=== PATIENT | female | born 1970 | race Caucasian/White ===

== ENCOUNTER 2020-02-12 15:45 | Observation (INO) | payer BC, OTHER ==
[~2020-02-12] VITALS: Ht 160 cm; Wt 118.2 kg
[~2020-02-12 15:45] MED LIST: CALC500T54 PO; CRESTOR10 MG PO; NILO200C PO
[2020-02-12 16:54] LABS: BASO # 0.1 x10^3/uL (0.0-0.2); BASO % 1 % (0-3); EOS # 0.2 x10^3/uL (0.0-0.7); EOS % 3 % (0-3); HEMATOCRIT 40.2 % (36.0-47.0); HEMOGLOBIN 13.5 g/dL (12.0-15.5); LYMPH # 3.1 x10^3/uL (1.0-4.8); LYMPH % 51 % (24-48); MEAN CORPUSCULAR HEMOGLOBIN 33 pg (25-35); MEAN CORPUSCULAR HGB CONC 34 g/dL (31-37); MEAN CORPUSCULAR VOLUME 98 fL (79-100); MONO # 0.4 x10^3/uL (0.0-1.1); MONO % 7 % (0-9); NEUT # 2.3 x10^3uL (1.8-7.7); NEUT % 38 % (31-73); PLATELET COUNT 313 x10^3/uL (140-400); RED BLOOD COUNT 4.08 x10^6/uL (3.50-5.40); RED CELL DISTRIBUTION WIDTH 13.4 % (11.5-14.5)
--- NOTE | 2020-02-12 17:05 | RAD ---
Chest AP portable at 1541: Reason for examination: Chest pain. The heart size is normal. Mediastinum is unremarkable. Lung farias are clear. No acute bony abnormali ties are seen. Impression: No acute cardiopulmonary disease. Electronically signed by: Kimberly Lynn MD (02/12/2020 5:03 PM) ELISEO
[2020-02-12 17:09] LABS: CALCIUM 9.1 mg/dL (8.5-10.1); GFR 58.9; POTASSIUM 3.7 mmol/L (3.5-5.1)
--- NOTE | 2020-02-12 17:11 | PHYS DOC ---
Past History Past Medical History: Anxiety, High Cholesterol, Hypertension, Other Additional Past Medical Histor: CML; LBBB Past Surgical History: Other Additional Past Surgical Histo: EYE X2; BILAT CARPAL TUNNEL; R TENNIS ELBOW Alcohol Use: None General Adult EDM: Chief Complaint: CHEST PAIN HPI: HPI: 50-year-old female past medical history of CML (on "TKI"), hypertension, hyperlipidemia and anxiety, presents to the ED with complaints of left-sided chest pain described as round and heavy that has been constant since yesterday afternoon at work. Reports the pain radiates to her left arm and "feels like I overexerted myself from exercise, but I haven't exercised." No relief with Tylenol that she took this morning. She thought her symptoms were related to anxiety and took a Xanax last night with no relief. Patient is also concerned her blood pressure is elevated, systolic was 190 on Saturday. States she had similar symptoms in 2017 or 2018 when she was seen at [facility]. Was diagnosed with a left bundle branch block at that time and had an unremarkable stress test. Is never had a cardiac cath. No history of blood clots or syncope. Family history-dad with a fast heart rate. No family history of sudden under the age of 50, aortic disease, connective tissue disorders, coronary artery disease or STEMI or coagulopathy. Patient is not on any anticoagulants. Denies any history of cocaine or methamphetamine abuse no excessive caffeine or IV drug use. Is not a tobacco smoker. Review of Systems: Review of Systems: Constitutional: Denies fever or chills or diaphoresis Eyes: Denies change in visual acuity HENT: Denies nasal congestion or sore throat Respiratory: Denies cough or shortness of breath Cardiovascular: Denies hemoptysis or edema GI: Denies abdominal pain, nausea, vomiting, bloody stools or diarrhea : Denies dysuria Musculoskeletal: Denies back pain or joint pain Integument: Denies rash Neurologic: Denies headache, focal weakness or sensory changes Endocrine: Denies polyuria or polydipsia Lymphatic: Denies swollen glands Psychiatric: Denies depression or anxiety Allergies: Allergies: Allergies Coded Allergies Type Severity Reaction Last Updated Verified No Known Drug Allergies 02/12/20 No Physical Exam: PE: Constitutional: Well developed, well nourished, no acute distress, non-toxic appearance, obese HENT: Normocephalic, atraumatic, Eyes: EOMI, conjunctiva normal, no discharge. Neck: Normal range of motion, supple, Cardiovascular: S1/2 present, regular rhythm Lungs & Thorax: Speaking in full sentences, bilateral equal chest rise, no tachypnea or increased work of breathing Abdomen: soft, no tenderness, Skin: Warm, dry, no erythema, no rash. Back: No tenderness, no CVA tenderness. [] Extremities: No tenderness, no cyanosis, mild LE edema Neurologic: Alert and oriented X 3, normal motor function, normal sensory function, no focal deficits noted. [] Psychologic: Affect normal, judgement normal, mood normal. [] Current Patient Data: Labs: Laboratory Tests Test 02/12/20 16:25 White Blood Count 6.0 x10^3/uL (4.0-11.0) Red Blood Count 4.08 x10^6/uL (3.50-5.40) Hemoglobin 13.5 g/dL (12.0-15.5) Hematocrit 40.2 % (36.0-47.0) Mean Corpuscular Volume 98 fL (79-100) Mean Corpuscular Hemoglobin 33 pg (25-35) Mean Corpuscular Hemoglobin Concent 34 g/dL (31-37) Red Cell Distribution Width 13.4 % (11.5-14.5) Platelet Count 313 x10^3/uL (140-400) Neutrophils (%) (Auto) 38 % (31-73) Lymphocytes (%) (Auto) 51 % (24-48) H Monocytes (%) (Auto) 7 % (0-9) Eosinophils (%) (Auto) 3 % (0-3) Basophils (%) (Auto) 1 % (0-3) Neutrophils # (Auto) 2.3 x10^3uL (1.8-7.7) Lymphocytes # (Auto) 3.1 x10^3/uL (1.0-4.8) Monocytes # (Auto) 0.4 x10^3/uL (0.0-1.1) Eosinophils # (Auto) 0.2 x10^3/uL (0.0-0.7) Basophils # (Auto) 0.1 x10^3/uL (0.0-0.2) Vital Signs: Vital Signs Date Time Temp Pulse Resp B/P (MAP) Pulse Ox O2 Delivery O2 Flow Rate FiO2 02/12/20 15:52 80 21 149/46 (80) 97 Room Air EKG: EKG: Sinus rhythm at 82 bpm, no axis deviation, QRS 148, QTc 489, T wave inversion aVL, old LBBB (per hx), no ST elevations or ST depressions via modified scarbossa criteria Radiology/Procedures: Radiology/Procedures: IMAGING REPORT Signed PATIENT: VITOR VICENTE ACCOUNT: [id number] : 1970 LOCATION: ER AGE: 50 SEX: F EXAM STATUS: REG ER ORD. PHYSICIAN: JEY DOMINIQUE DO REASON: cp PROCEDURE: PORTABLE CHEST 1V Chest AP portable at 1541: Reason for examination: Chest pain. The heart size is normal. Mediastinum is unremarkable. Lung farias are clear. No acute bony abnormalities are seen. Impression: No acute cardiopulmonary disease. Electronically signed by: Kimberly Howard MD (02/12/2020 5:03 PM) [facility] DICTATED AND SIGNED BY: KIMBERLY HOWARD MD DATE: 02/12/20 1702 CC: CHERYL ANNA MD; JEY DOMINIQUE DO ~MTH0 0 Heart Score: HEART Score for Chest Pain: HEART Score for Chest Pain Response (Comments) Value History Slighlty/Non-Suspicious 0 ECG Nonspecific Repolarizatio 1 Age >45 - < 65 1 Risk Factors >3 Risk Factors or Hx CAD 2 Troponin < Normal Limit 0 Total 4 Risk Factors: Risk Factors: DM, Current or recent (<one month) smoker, HTN, HLP, family history of CAD, obesity. Risk Scores: Score 0 - 3: 2.5% MACE over next 6 weeks - Discharge Home Score 4 - 6: 20.3% MACE over next 6 weeks - Admit for Clinical Observation Score 7 - 10: 72.7% MACE over next 6 weeks - Early Invasive Strategies Course & Med Decision Making: Course & Med Decision Making Pertinent Labs and Imaging studies reviewed. (See chart for details) Concern for chest pain in the setting of heart score of 4, EKG with left bundle and 1 T wave inversion. Troponin within normal limits. D-dimer within normal limits. Chest x-ray with no ischemia. Drug screen negative. Will admit for serial cardiac enzymes and cardiology consultation. TKI-tyrosine kinase inhibitor (drug class) has rare but serious cardiac side effects including congestive heart failure and QT interval prolongation. Patient stable at time of admission and agrees with this plan. I have spoken with the patient and/or caregivers. I have explained the patient's condition, diagnosis and treatment plan based on the information available to me at this time. I have answered the patient's and/or caregivers questions and answered any concerns. The patient and/or caregivers have as good an understanding of the patient's diagnosis, condition and treatment plan as can be expected at this point. The patient has been stabilized within the capability of the emergency department. The patient will be transported for further care and management or will be moved to an observation or inpatient service. I have communicated with the staff or medical practitioner taking over this patient's care. Alejandra Disclaimer: Alejandra Disclaimer: This electronic medical record was generated, in whole or in part, using a voice recognition dictation system. Departure Departure: Impression: Primary Impression: Chest pain at rest Disposition: ADMITTED INPT THIS HOSP Admitting Physician: Buck Delarosa Condition: STABLE Referrals: CHERYL ANNA MD (PCP) JEY DOMINIQUE DO Feb 12, 2020 17:11
[2020-02-12] MEDS ORDERED: diazePAM 5 MG TABLET. PO ONE (17:15)
[2020-02-12 17:21] LABS: ALBUMIN 4.1 g/dL (3.4-5.0); ALBUMIN/GLOBULIN RATIO 1.1 (1.0-1.7); MAGNESIUM 2.2 mg/dL (1.8-2.4); TOTAL BILIRUBIN 0.6 mg/dL (0.2-1.0); TOTAL PROTEIN 7.8 g/dL (6.4-8.2)
--- NOTE | 2020-02-12 17:34 | EKG ---
[address] [address] Test Date: 2020-02-12 Test Time: 15:57:41 Pat Name: VITOR VICENTE Department: Room: Gender: F [employer]: FABRICIO : 1970 Requested By: JEY DOMINIQUE Order Number: [id number] Reading MD: Measurements Intervals [place] Rate: 82 P: 51 NH: 168 QRS: 15 QRSD: 148 T: 73 QT: 416 QTc: 489 Interpretive Statements SINUS RHYTHM LEFT BUNDLE BRANCH BLOCK ABNORMAL ECG RI6.02 No previous ECG available for comparison
[2020-02-12] MEDS ORDERED: NITROGLYCERIN SUBLINGUAL 0.4 MG BOTTLE OF 25. SL PRN (18:45)
[2020-02-12] MEDS ORDERED: ONDANSETRON PF 4 MG/2 ML VIAL. IVP PRN (18:45)
[2020-02-12 19:14] LABS: BARBITURATES NEG (NEG); BENZODIAZEPINES NEG (NEG); CANNABINOIDS NEG (NEG); COCAINE NEG (NEG); METHADONE NEG (NEG); OPIATES NEG (NEG); PHENCYCLIDINE NEG (NEG)
[2020-02-12 19:18] LABS: AMPHETAMINE/METHAMPHETAMINE NEG (NEG)
[2020-02-12 20:20] VITALS: BP 148/82
--- NOTE | 2020-02-12 22:10 | NUR ---
The patient, VITOR VICENTE, 50 y/o, F admitted by ROSIE MABRY MD, was given written information regarding hospital policies, unit procedures and contact persons. Valuables were checked and logged. Call light at place. Will continue to monitor.
[2020-02-12 23:00] VITALS: BP 119/58
[2020-02-12] MEDS ORDERED: EZET10TA20 PO (23:01)
[2020-02-12] MEDS ORDERED: PRAV40TA2 PO (23:06)
[2020-02-12] MEDS ORDERED: CARV12.547 PO (23:06)
[2020-02-12] MEDS ORDERED: DASA20TA PO (23:06)
[2020-02-12] MEDS ORDERED: LISI10TA2 PO (23:13)
[2020-02-12] MEDS ORDERED: DULO60CA6 PO (23:13)
[2020-02-12] MEDS ORDERED: DASATINIB 20 MG PO ONE (23:15)
[2020-02-12] MEDS ORDERED: ATORVASTATIN CALCIUM 10 MG TABLET. PO SCH (23:15)
[2020-02-12] MEDS: LISINOPRIL 10 MG TABLET PO SCH (23:33)
[2020-02-12] MEDS: CARVEDILOL 12.5 MG TABLET PO SCH (23:34)
[2020-02-12] MEDS: EZETIMIBE 10 MG TABLET PO SCH (23:34)
[2020-02-13 03:11] VITALS: BP 104/58
[2020-02-13 05:46] VITALS: BP 95/54
[2020-02-13 08:10] VITALS: BP 111/66
[2020-02-13] MEDS: EZETIMIBE 10 MG TABLET PO SCH (08:30)
[2020-02-13] MEDS: CARVEDILOL 12.5 MG TABLET PO SCH (08:31)
[2020-02-13 08:32] VITALS: BP 95/54
[2020-02-13] MEDS: LISINOPRIL 10 MG TABLET PO SCH (08:32)
--- NOTE | 2020-02-13 08:53 | HP ---
ADMIT DATE: 02/12/2020 ATTENDING PHYSICIAN: Dr. Mabry. CHIEF COMPLAINT: Chest pain. HISTORY OF PRESENT ILLNESS: The patient is a 50-year-old female with new onset of chest pain, left sided, described as heavy and pressure, constant since the day before at work. No recent trauma or heavy activity. The pain radiates to the left arm, it felt like she overexerted myself from exercise, but she has an exercise. She took some ibuprofen, which did not help. She is worried about her blood pressure was elevated. 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 EKG had a left bundle-branch block. She was admitted for monitoring and serial cardiac enzymes. Risk factors, there is no family history. She is a nonsmoker, nondrinker. She is obese. She has other medical issues. PAST MEDICAL HISTORY: Significant for chronic myelogenous leukemia diagnosed in 2008. She has been on Gleevec and other tyrosine kinase inhibitors, which is cured her disease. She also has hyperlipidemia, morbid obesity, essential hypertension and a carpal tunnel release. CURRENT MEDICATIONS: Reviewed. She was taking calcium carbonate, Coreg 12.5 mg b.i.d., Sprycel 20 mg daily, Cymbalta 60 mg daily, Zetia, lisinopril, nilotinib 200 mg daily, pravastatin, Crestor. It is unclear whether she is taking both of the statin drugs. ALLERGIES: She has no known drug allergies. FAMILY HISTORY: There is no related early premature heart disease. SOCIAL HISTORY: She is a nonsmoker, nondrinker. 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 She is under a lot of stress at work. She also has stress with 2 grown children moving in with her since the pandemic. REVIEW OF SYSTEMS: Significant for localized pain. No recent travel, COVID exposure, falls, trauma, fevers, cough or chills. All other systems were reviewed and turned to be negative. PHYSICAL EXAMINATION: GENERAL: When I saw her, this is a pleasant, middle-aged female. INITIAL VITAL SIGNS: Showed a blood pressure of 104/58 by the time I saw her, pulse was 74 and regular. She was afebrile, oxygen saturation 96% on room air. HEENT: Head is without trauma. Pupils are reactive. Sclerae nonicteric. Oropharynx is clear. NECK: Supple, no bruits identified. LUNGS: Otherwise clear. CARDIOVASCULAR: Showed regular heart tones. No gallops. ABDOMEN: Soft, obese, protuberant. No organomegaly. Bowel sounds are hypoactive. EXTREMITIES: Showed no cyanosis or edema. NEUROLOGIC: Focally intact. Speech is fluent. Commercial Fishing Vessel Operator intact. SKIN: Warm and dry. PERTINENT LABORATORY STUDIES: Hemoglobin is 13.5 g/dL, white cell count 6000. Electrolytes, BUN and creatinine within normal range. The first set of cardiac enzymes were negative with a normal troponin without any evidence of coronary ischemia. EKG showed left bundle-branch block. Chest x-ray was clear without any acute decompensation or infiltrate. ASSESSMENT: 1. A 50-year-old female with atypical chest pain more musculoskeletal in nature. 2. Known history of chronic myelogenous leukemia, currently in remission, she has had this since 2008. 3. Obesity. 4. Hypertension. 5. Hyperlipidemia. PLAN: 1. Observation status. 2. Telemetry monitoring. 3. Serial cardiac enzymes. 4. Continue home meds. ROSIE MABRY MD DR: SHINE/ki JOB#: [id number] / [id number] CHERYL Joyner MD
[2020-02-13] MEDS ORDERED: DULoxetine HCL 60 MG CAPSULE.DR PO SCH (09:00)
--- NOTE | 2020-02-13 09:01 | DS ---
DATE OF DISCHARGE: 02/13/2020 ATTENDING PHYSICIAN: Dr. Mabry. FINAL DISCHARGE DIAGNOSES: 1. Atypical chest pain, noncardiac. 2. Coronary ischemia ruled out. 3. History of chronic myelogenous leukemia, in remission. 4. Hypertension. 5. Hyperlipidemia. 6. Obesity. 7. Underlying generalized anxiety disorder. HISTORY OF PRESENT ILLNESS: The patient is a pleasant 50-year-old female. 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 She was admitted with nonexertional chest pain, left sided, more musculoskeletal in nature. She was admitted for evaluation and serial cardiac enzymes. PHYSICAL EXAMINATION: Please see the dictated note. PERTINENT LABORATORY AND X-RAY STUDIES: Three sets of cardiac enzymes negative for coronary ischemia. Electrolytes within normal range. CBC and white count were normal. COURSE IN THE HOSPITAL: The patient was admitted and monitored overnight. Three sets of enzymes were negative for coronary ischemia. Pain had subsided, ____ completely resolved, more localized musculoskeletal in nature. We had a long discussion, she is under a lot of stress. She denied any recent trauma. I reassured her that her pains were noncardiac. Therefore, she was ready for discharge. There are no changes on her home medications. She will continue her current regimen of Coreg 12.5 mg b.i.d., calcium, Sprycel for leukemia, Cymbalta, Zetia, lisinopril, Tasigna, pravastatin dose is unchanged. She will follow up with her regular PCP. She was discharged then from our hospital in stable condition with explicit instructions and followup care. ROSIE MABRY MD DR: SIHNE/ki JOB#: [id number] / [id number] CHERYL Joyner MD
--- NOTE | 2020-02-13 09:30 | NUR ---
REVIEWED D/C PAPERWORK WITH PT. PT SIGNED HER PAPERWORK AND IV WAS D/C BY [employer] [facility]. PT HAD NO SCRIPTS AND ALL PT BELONGINGS WERE SENT WITH PATIENT. PT WAS DISCONNECTED FROM MONITOR AND WALKED TO THE FRONT DOOR TO WAIT FOR HER RIDE. PT D/C FROM THE HOSPITAL.
[2020-02-13] MEDS ORDERED: DASATINIB 20 MG PO SCH (21:00)
== END 2020-02-13 09:30 | disposition home or self-care (01) ==
LOC: ER 15:45 → ICU 18:40 → INTOOBSV 18:40
PROVIDERS: ADMIT Hospitalist; ATTEND Hospitalist
DX: R07.89 Other chest pain (principal); C92.11 Chronic myeloid leukemia, BCR/ABL-positive, in remission; I10 Essential (primary) hypertension; I44.7 Left bundle-branch block, unspecified; E78.5 Hyperlipidemia, unspecified; E66.01 Morbid (severe) obesity due to excess calories; E78.00 Pure hypercholesterolemia, unspecified; F41.9 Anxiety disorder, unspecified; Z98.890 Other specified postprocedural states; Z68.42 Body mass index [BMI] 45.0-49.9, adult; Z79.899 Other long term (current) drug therapy
CPT/HCPCS: 36415; 71045; 80053; 80307; 83690; 83735; 83880; 84484; 85025; 85379; 93005; 99285; G0378; G0379